=== PATIENT | female | born 1975 | race Caucasian/White ===

== ENCOUNTER 2019-07-21 21:57 | Outpatient (REF) | payer OTHER, SELFPAY ==
[2019-07-21 22:07] LABS: TSH 1.36 uIU/mL (0.36-3.74)
== END 2019-07-21 22:17 ==
LOC: NCHCN 21:57
PROVIDERS: PCP Nurse Practitioner Family; Visit Provider Family Medicine
DX: E03.9 Hypothyroidism, unspecified (principal)
CPT/HCPCS: 84443

== ENCOUNTER 2020-03-01 14:58 | Outpatient (REF) | payer OTHER, SELFPAY ==
[2020-03-03 17:27] LABS: COVID-19 RT-PCR Result NEGATIVE (Negative)
== END 2020-03-01 15:18 ==
LOC: NCHCN 14:58
PROVIDERS: PCP Nurse Practitioner Family; Visit Provider Family Medicine
DX: Z11.59 Encounter for screening for other viral diseases (principal)
CPT/HCPCS: U0003

== ENCOUNTER 2020-08-21 15:33 | Outpatient (REF) | payer OTHER, SELFPAY ==
[2020-08-21 15:21] LABS: Abs Immature Grans 0.03 10^3/uL (0.0-0.06); Absolute Basophil Count 0.03 10^3/uL (0.0-0.2); Absolute Eosinophil Count 0.09 10^3/uL (0.0-0.7); Absolute Lymphocyte Count 1.91 10^3/uL (1.2-3.4); Absolute Monocyte Count 0.57 10^3/uL (0.1-0.8); Absolute Neutrophil Count 4.38 10^3/uL (1.2-6.7); Basophils % 0.4; Eosinophils % 1.3; HCT 40.1 % (36.0-46.0); HGB 13.2 g/dL (11.2-15.7); Immature Grans % 0.4; Lymphocytes % 27.2; MCH 29.6 pg (27.0-33.0); MCHC 32.9 % (32.0-36.0); MCV 89.9 fL (80-95); MPV 9.7 fL (8.0-11.0); Monocytes % 8.1; Neutrophils % 62.6; Nucleated RBC 0 %; Platelet Count 308 10^3/uL (130-400); RBC 4.46 10^6/uL (3.93-5.22); RDW-SD 39.8 fL; WBC 7.01 10^3/uL (4.4-10.8)
[2020-08-21 16:10] LABS: ALT 23 U/L (14-59); AST 15 U/L (15-37); Albumin 3.9 g/dL (3.4-5.0); Alkaline Phosphatase 41 U/L (46-116); Anion Gap 10.1 mmol/L (3-11); BUN 10 mg/dL (7-18); Bilirubin, Total 0.6 mg/dL (0.2-1.0); CO2 25.9 mmol/L (21.0-32.0); CREATININE 0.7 mg/dL (0.55-1.02); Calcium 9.2 mg/dL (8.5-10.1); Calculated LDL 97 mg/dL (<100); Chloride 102 mmol/L (98-107); Cholesterol 176 mg/dL (<200); Glucose 86 mg/dL (74-106); HDL Cholesterol 72 mg/dL (40-60); Potassium 4.3 mmol/L (3.5-5.1); Sodium 138 mmol/L (136-145); TSH 0.03 uIU/mL (0.36-3.74); Triglyceride 38 mg/dL (<150)
== END 2020-08-21 15:34 | disposition home or self-care (01) ==
LOC: LBN 15:33
PROVIDERS: PCP Nurse Practitioner Family; Visit Provider Family Medicine
DX: Z00.00 Encounter for general adult medical examination without abnormal findings (principal); E03.9 Hypothyroidism, unspecified
CPT/HCPCS: 80053; 80061; 84443; 85025

== ENCOUNTER 2020-11-15 20:43 | Outpatient (REF) | payer OTHER, SELFPAY ==
[2020-11-15 21:33] LABS: TSH 0.13 uIU/mL (0.36-3.74)
== END 2020-11-15 20:44 | disposition home or self-care (01) ==
LOC: LBN 20:43
PROVIDERS: PCP Nurse Practitioner Family; Visit Provider Family Medicine
DX: E03.9 Hypothyroidism, unspecified (principal)
CPT/HCPCS: 84443

== ENCOUNTER 2021-01-17 16:13 | Outpatient (REF) | payer OTHER, SELFPAY ==
[2021-01-17 16:44] LABS: TSH 1.14 uIU/mL (0.36-3.74)
== END 2021-01-17 16:14 | disposition home or self-care (01) ==
LOC: LBN 16:13
PROVIDERS: PCP Nurse Practitioner Family; Visit Provider Family Medicine
DX: E03.9 Hypothyroidism, unspecified (principal)
CPT/HCPCS: 84443

== ENCOUNTER 2021-05-31 08:36 | Outpatient (REF) | payer OTHER, SELFPAY ==
[2021-06-01 01:12] LABS: COVID-19 RT-PCR UVMMC Result Negative (Negative)
== END 2021-05-31 08:37 | disposition home or self-care (01) ==
LOC: NCHCN 08:36
PROVIDERS: PCP Nurse Practitioner Family; Visit Provider Family Medicine
DX: Z20.822 Contact with and (suspected) exposure to COVID-19 (principal); J06.9 Acute upper respiratory infection, unspecified
CPT/HCPCS: U0003

== ENCOUNTER 2021-08-06 14:37 | Outpatient (REF) | payer OTHER, SELFPAY ==
[2021-08-07 10:29] LABS: Lyme Ab w Rflx to Lyme Confirm Negative (Negative)
== END 2021-08-06 14:38 | disposition home or self-care (01) ==
LOC: NCHCN 14:37
PROVIDERS: PCP Nurse Practitioner Family; Visit Provider Orthopaedic Surgery
DX: M25.462 Effusion, left knee (principal); M25.562 Pain in left knee
CPT/HCPCS: 86618

== ENCOUNTER 2021-08-06 17:28 | Outpatient (REF) | payer OTHER, SELFPAY ==
[2021-08-06 18:49] LABS: Abs Immature Grans 0.03 10^3/uL (0.0-0.06); Absolute Basophil Count 0.05 10^3/uL (0.0-0.2); Absolute Eosinophil Count 0.13 10^3/uL (0.0-0.7); Absolute Lymphocyte Count 1.83 10^3/uL (1.2-3.4); Absolute Monocyte Count 0.72 10^3/uL (0.1-0.8); Absolute Neutrophil Count 7.14 10^3/uL (1.2-6.7); Basophils % 0.5; Eosinophils % 1.3; HCT 40.2 % (36.0-46.0); HGB 12.8 g/dL (11.2-15.7); Immature Grans % 0.3; Lymphocytes % 18.5; MCH 29.2 pg (27.0-33.0); MCHC 31.8 % (32.0-36.0); MCV 91.8 fL (80-95); MPV 9.7 fL (8.0-11.0); Monocytes % 7.3; Neutrophils % 72.1; Nucleated RBC 0 %; Platelet Count 345 10^3/uL (130-400); RBC 4.38 10^6/uL (3.93-5.22); RDW 12.5 % (11.7-14.6); RDW-SD 42.6 fL
[2021-08-06 19:17] LABS: ALT 22 U/L (14-59); AST 15 U/L (15-37); Alkaline Phosphatase 48 U/L (46-116); Anion Gap 9.3 mmol/L (3-11); BUN 12 mg/dL (7-18); Bilirubin, Total 0.6 mg/dL (0.2-1.0); CO2 26.7 mmol/L (21.0-32.0); CREATININE 0.7 mg/dL (0.55-1.02); Calculated LDL 113 mg/dL (<100); Chloride 104 mmol/L (98-107); Cholesterol 193 mg/dL (<200); Glucose 82 mg/dL (74-106); HDL Cholesterol 72 mg/dL (40-60); Potassium 4.3 mmol/L (3.5-5.1); Sodium 140 mmol/L (136-145); TSH 2.17 uIU/mL (0.36-3.74); Total Protein 7.2 g/dL (6.4-8.2); Triglyceride 44 mg/dL (<150)
== END 2021-08-06 17:29 | disposition home or self-care (01) ==
LOC: NCHCN 17:28
PROVIDERS: PCP Nurse Practitioner Family; Visit Provider Family Medicine
DX: Z00.00 Encounter for general adult medical examination without abnormal findings (principal); E03.9 Hypothyroidism, unspecified
CPT/HCPCS: 80053; 80061; 84443; 85025

== ENCOUNTER 2021-09-17 14:19 | Outpatient (REF) | payer OTHER, SELFPAY ==
[2021-09-18 00:38] LABS: COVID-19 RT-PCR UVMMC Result Negative (Negative)
== END 2021-09-17 14:20 | disposition home or self-care (01) ==
LOC: NCHCN 14:19
PROVIDERS: PCP Nurse Practitioner Family; Visit Provider Nurse Practitioner Family
DX: Z20.822 Contact with and (suspected) exposure to COVID-19 (principal); J06.9 Acute upper respiratory infection, unspecified
CPT/HCPCS: U0003

== ENCOUNTER 2022-10-02 09:34 | Outpatient (REF) | payer BC, SELFPAY ==
[2022-10-02 14:25] LABS: Abs Immature Grans 0.02 10^3/uL (0.0-0.06); Absolute Basophil Count 0.05 10^3/uL (0.0-0.2); Absolute Eosinophil Count 0.13 10^3/uL (0.0-0.7); Absolute Lymphocyte Count 1.99 10^3/uL (1.2-3.4); Absolute Monocyte Count 0.64 10^3/uL (0.1-0.8); Absolute Neutrophil Count 4.21 10^3/uL (1.2-6.7); Basophils % 0.7; Eosinophils % 1.8; HCT 40.6 % (36.0-46.0); HGB 13.5 g/dL (11.2-15.7); Immature Grans % 0.3; Lymphocytes % 28.3; MCH 29.4 pg (27.0-33.0); MCHC 33.3 % (32.0-36.0); MCV 89 fL (80-95); MPV 9.3 fL (8.0-11.0); Monocytes % 9.1; Neutrophils % 59.8; Platelet Count 331 10^3/uL (130-400); RBC 4.59 10^6/uL (3.93-5.22); RDW 13.2 % (11.7-14.6); RDW-SD 42.8 fL; WBC 7.04 10^3/uL (4.4-10.8)
[2022-10-02 14:50] LABS: ALT 23 U/L (14-59); AST 22 U/L (15-37); Albumin 3.8 g/dL (3.4-5.0); Alkaline Phosphatase 46 U/L (46-116); Anion Gap 5.7 mmol/L (3-11); BUN 14 mg/dL (7-18); Bilirubin, Total 0.4 mg/dL (0.2-1.0); CO2 29.3 mmol/L (21.0-32.0); CREATININE 0.9 mg/dL (0.55-1.02); Calcium 9.3 mg/dL (8.5-10.1); Calculated LDL 118 mg/dL (<100); Chloride 104 mmol/L (98-107); Cholesterol 204 mg/dL (<200); Estimated GFR 78.37 (mL/min/1.73m2); Glucose 90 mg/dL (74-106); HDL Cholesterol 80 mg/dL (40-60); Potassium 4.6 mmol/L (3.5-5.1); Sodium 139 mmol/L (136-145); TSH 1.97 uIU/mL (0.36-3.74); Total Protein 7.7 g/dL (6.4-8.2); Triglyceride 32 mg/dL (<150)
== END 2022-10-02 09:35 | disposition home or self-care (01) ==
LOC: LBN 09:34
PROVIDERS: PCP Nurse Practitioner Family; Visit Provider Family Medicine
DX: Z00.00 Encounter for general adult medical examination without abnormal findings (principal); Z13.220 Encounter for screening for lipoid disorders
CPT/HCPCS: 80053; 80061; 84443; 85025

== ENCOUNTER 2023-12-30 10:14 | Outpatient (REF) | payer BC, SELFPAY ==
[2023-12-30 16:42] LABS: Abs Immature Grans 0.01 10^3/uL (0.0-0.06); Absolute Basophil Count 0.04 10^3/uL (0.0-0.2); Absolute Eosinophil Count 0.22 10^3/uL (0.0-0.7); Absolute Lymphocyte Count 2.02 10^3/uL (1.2-3.4); Absolute Monocyte Count 0.67 10^3/uL (0.1-0.8); Absolute Neutrophil Count 3.74 10^3/uL (1.2-6.7); Basophils % 0.6 %; Eosinophils % 3.3 %; HCT 42.1 % (36.0-46.0); HGB 13.8 g/dL (11.2-15.7); Immature Grans % 0.1 %; Lymphocytes % 30.1 %; MCH 29.7 pg (27.0-33.0); MCHC 32.8 % (32.0-36.0); MCV 91 fL (80-95); MPV 9.8 fL (8.0-11.0); Neutrophils % 55.9 %; Platelet Count 259 10^3/uL (130-400); RBC 4.64 10^6/uL (3.93-5.22); RDW 12.1 % (11.7-14.6); RDW-SD 39.7 fL
[2023-12-30 17:37] LABS: ALT 30 U/L (14-59); AST 23 U/L (15-37); Albumin 3.5 g/dL (3.4-5.0); Alkaline Phosphatase 48 U/L (46-116); Anion Gap 3.8 mmol/L (3-11); BUN 11 mg/dL (7-18); Bilirubin, Total 0.26 mg/dL (0.2-1.0); CO2 31.2 mmol/L (21.0-32.0); CREATININE 0.8 mg/dL (0.55-1.02); Calcium 9.2 mg/dL (8.5-10.1); Calculated LDL 101 mg/dL (<100); Chloride 107 mmol/L (98-107); Cholesterol 182 mg/dL (<200); Estimated GFR 89.71 (mL/min/1.73m2); Glucose 76 mg/dL (74-106); HDL Cholesterol 75 mg/dL (40-60); Potassium 5.1 mmol/L (3.5-5.1); Sodium 142 mmol/L (136-145); TSH (W/Ref FT4) 0.69 uIU/mL (0.36-3.74); Total Protein 6.9 g/dL (6.4-8.2); Triglyceride 34 mg/dL (<150)
[2023-12-30 20:21] LABS: Hemoglobin A1C 5.7 % (<5.7)
== END 2023-12-30 10:15 | disposition home or self-care (01) ==
LOC: NCHCN 10:14
PROVIDERS: PCP Nurse Practitioner Family; Visit Provider Nurse Practitioner Family
DX: Z00.00 Encounter for general adult medical examination without abnormal findings (principal); E03.9 Hypothyroidism, unspecified; R53.83 Other fatigue; Z13.220 Encounter for screening for lipoid disorders; Z13.1 Encounter for screening for diabetes mellitus
CPT/HCPCS: 80053; 80061; 83036; 84443; 85025